=== PATIENT | female | born 1950 | race Caucasian/White ===

== ENCOUNTER → 2021-08-12 11:25 | Outpatient (BNVA) | payer MEDICARE, SELFPAY | PROVIDERS: PCP Pediatrics; Visit Provider Psychiatry & Neurology Neurology | DX: G20 Parkinson's disease (principal); Z79.899 Other long term (current) drug therapy | CPT/HCPCS: 99212 ==

== ENCOUNTER → 2021-11-24 09:55 | Outpatient (BNVA) | payer MEDICARE, SELFPAY | PROVIDERS: PCP Pediatrics; Visit Provider Psychiatry & Neurology Neurology | DX: G20 Parkinson's disease (principal); Z79.899 Other long term (current) drug therapy | CPT/HCPCS: 99212 ==

== ENCOUNTER → 2022-05-18 10:43 | Outpatient (BNVA) | payer MEDICARE, SELFPAY | PROVIDERS: PCP Pediatrics; Visit Provider Psychiatry & Neurology Neurology | DX: G20 Parkinson's disease (principal) | CPT/HCPCS: 99212 ==

== ENCOUNTER 2022-11-15 10:46 | Outpatient (AMB) | payer MEDICARE, SELFPAY ==
[2022-11-15 10:48] VITALS: BP 122/76; PULSE 77; O2SAT 97
--- NOTE | 2022-11-15 10:48 | A.OFFVIS_ITS ---
Intake Vital Signs 11/15/22 10:48 Height 5 ft 7 in BMI Reason not done Patient refused/unable BP 122/76 Blood Pressure Location Rt brachial Position Sitting Pulse 77 Pulse Source Pulse Oximeter Pulse Oximetry (%) 97 Oxygen Delivery Method Room Air Intake Visit Reasons: 6 m f/u-confirmed Intake Note: Pt presents as a 6 month f/u. Chief Service Observer Required: No Allergies tetracycline Allergy (Severe, Verified 11/15/22 10:51) Vomiting red (food color) Adverse Reaction (Severe, Verified 11/15/22 10:51) Swelling HPI HPI Comments History of Present Illness Details 72y/o female with parkinsonism, tardive dyskinesia, anxiety comes for follow up. she had afall few days ago when ehr walker caught in the door mat . she is doing Ok now. she is able to controle her anxiety better. she is exercising regularly.. she is on sinemet 25/100 1.5 tabs qid and feels she is stable she sees a psychiatrist and therapist , anxiety is better. she does yoga, deep breathing etc. Tremors are intermittent worse when anxious she is independent in most ADLs. No falls NO change on speech or swallowing she has home PT. she uses a walker Bowel movements are stable no hallucinations she tried austedo in past she could not tolerate cogentin PFSH Medical History Anxiety Arthritis Back pain Depression Hyperlipidemia Kidney disease Parkinsonism Thyroid disease Tremors of nervous system Family History Father Heart attack Mother Cancer COVID-19 Social History Alcohol intake: never Patient Tobacco Use Status: Never used Tobacco Use of substances other than those prescribed or required for medical reasons: No Physical Exam Vital Signs: Last Vital Signs Pulse 77 11/15/22 10:48 BP 122/76 11/15/22 10:48 Pulse Ox 97 11/15/22 10:48 Oxygen Delivery Method Room Air 11/15/22 10:48 Const General: cooperative, healthy appearing and comfortable Nutritional Appearance: overweight Neuro Other: Brad UE postural tremors- mild to moderate Good FFM Good foot taps, Mild decreased facial expression and blink Neck - stiffness and decreased range of motion Gait- can walk slowly without walker, better with walker, small steps Voice- dysprosody Assessment & Plan Assessment & Plan (1) Parkinsonism: Code(s): G20 - Parkinson's disease (2) Tremors of nervous system: Code(s): R25.1 - Tremor, unspecified Plan amantadine 100mg bid Continue sinemet 25/100 1.5tabs qid continue exercises Coding Level of Care Code Est Pt Level 4 (61147) Diagnoses Parkinsonism G20 Tremors of nervous system R25.1
== END 2022-11-15 11:03 | disposition home or self-care (01) ==
PROVIDERS: Visit Provider Psychiatry & Neurology Neurology
DX: G20 Parkinson's disease (principal)
CPT/HCPCS: 99214

== ENCOUNTER → 2022-11-15 10:46 | Outpatient (BNVA) | payer MEDICARE, SELFPAY | PROVIDERS: Visit Provider Psychiatry & Neurology Neurology | DX: G20 Parkinson's disease (principal) | CPT/HCPCS: 99212 ==

== ENCOUNTER 2023-05-18 10:40 | Outpatient (AMB) | payer MEDICARE, MEDICAID, SELFPAY ==
--- NOTE | 2023-05-18 11:02 | A.OFFVIS_ITS ---
Intake Vital Signs 05/18/23 11:03 Height 5 ft 7 in BP 130/88 Blood Pressure Location Lt brachial Position Sitting Respiration 17 Pulse 66 Pulse Source Pulse Oximeter Pulse Oximetry (%) 96 Oxygen Delivery Method Room Air Intake Visit Reasons: 6m follow up/ LVM Intake Note: Pt presents for 6 month follow up for Parkinsonism. Administrative Secretary Required: No Allergies tetracycline Allergy (Severe, Verified 05/18/23 11:03) Vomiting red (food color) Adverse Reaction (Severe, Verified 05/18/23 11:03) Swelling Medication List - Last Reconciled 05/18/23 by Lida Ayala MD amantadine HCl 100 mg PO BID 90 days carbidopa-levodopa 25-100 mg 1.5 tabs PO QID 90 days duloxetine (Cymbalta) 60 mg PO DAILY lamotrigine (Lamictal) 150 mg PO .qhs levothyroxine (Levoxyl) 50 mcg PO DAILY pravastatin 40 mg PO DAILY trazodone 100 mg PO BEDTIME PRN HPI HPI Comments History of Present Illness Details 73y/o female with parkinsonism, tardive dyskinesia, anxiety comes for follow up.Her anxiety is worse since she had an issue with a fellow tenant. she is seeing her therapist who is helping her. she had a fall in October 2022 she is doing Ok now. she is exercising regularly.. she is on sinemet 25/100 1.5 tabs qid and feels she is stable she sees a psychiatrist and therapist . she does yoga, deep breathing etc. Tremors are intermittent worse when anxious she is independent in most ADLs. No falls NO change on speech or swallowing she has home PT. she uses a walker Bowel movements are stable no hallucinations she tried austedo in past she could not tolerate cogentin PFSH Medical History Parkinsonism Tremors of nervous system Thyroid disease Kidney disease Hyperlipidemia Anxiety Depression Back pain Arthritis Family History Father Heart attack Mother Cancer COVID-19 Social History Alcohol intake: never Patient Tobacco Use Status: Never used Tobacco Physical Exam Vital Signs: Last Vital Signs Pulse 66 05/18/23 11:03 Resp 17 02/01/24 11:03 BP 130/88 05/18/23 11:03 Pulse Ox 96 05/18/23 11:03 Oxygen Delivery Method Room Air 05/18/23 11:03 Const General: cooperative, healthy appearing and comfortable Nutritional Appearance: overweight Neuro Other: Brad UE postural tremors- mild to moderate Good FFM Good foot taps, Mild decreased facial expression and blink Neck - stiffness and decreased range of motion Gait- can walk slowly without walker, better with walker, small steps Voice- dysprosody Assessment & Plan Assessment & Plan (1) Parkinsonism: Code(s): G20 - Parkinson's disease (2) Tremors of nervous system: Code(s): R25.1 - Tremor, unspecified Plan amantadine 100mg bid Continue sinemet 25/100 1.5tabs qid continue exercises F/u with psychiatry and therapy Medications: Changed From amantadine HCl 100 mg PO BID 60 caps 6RF To amantadine HCl 100 mg PO BID 90 days 180 caps 6RF From carbidopa-levodopa 25-100 mg 1.5 tabs PO QID 180 tabs 6RF To carbidopa-levodopa 25-100 mg 1.5 tabs PO QID 90 days 540 tabs 6RF Coding Level of Care Code Est Pt Level 4 (58920) Diagnoses Parkinsonism G20 Tremors of nervous system R25.1
[2023-05-18 11:03] VITALS: BP 130/88; PULSE 66; RESP 17; O2SAT 96
== END 2023-05-18 11:39 | disposition home or self-care (01) ==
PROVIDERS: PCP Pediatrics; Visit Provider Psychiatry & Neurology Neurology
DX: G20.C Parkinsonism, unspecified (principal)
CPT/HCPCS: 99214

== ENCOUNTER → 2023-05-18 10:40 | Outpatient (BNVA) | payer MEDICARE, MEDICAID, SELFPAY | PROVIDERS: PCP Pediatrics; Visit Provider Psychiatry & Neurology Neurology | DX: G20.C Parkinsonism, unspecified (principal); Z79.899 Other long term (current) drug therapy | CPT/HCPCS: 99212 ==

== ENCOUNTER 2024-06-11 10:20 | Outpatient (AMB) | payer MEDICARE, MEDICAID, SELFPAY ==
--- NOTE | 2024-06-11 10:24 | MHC.OFFVIS ---
Vital Signs 06/11/24 10:26 Height 5 ft 7 in Weight 234 lb BMI 36.6 BP 140/84 H Blood Pressure Location Rt brachial Position Sitting Pulse 77 Pulse Source Pulse Oximeter Pulse Oximetry (%) 98 Oxygen Delivery Method Room Air Intake Visit Reasons: 6 mnts Intake Note: patient following up for parkinson's Allergies Sulfa (Sulfonamide Antibiotics) Allergy (Severe, Verified 06/11/24 10:28) irritation tetracycline Allergy (Severe, Verified 06/11/24 10:27) Vomiting red (food color) Adverse Reaction (Severe, Verified 06/11/24 10:27) Swelling Medication List - Last Reconciled 06/11/24 by Lida Ayala MD amantadine HCl 100 mg PO BID 90 days carbidopa-levodopa 25-100 mg 1.5 tabs PO QID 90 days duloxetine (Cymbalta) 60 mg PO DAILY lamotrigine (Lamictal) 150 mg PO .qhs levothyroxine (Levoxyl) 50 mcg PO DAILY pravastatin 40 mg PO DAILY trazodone 100 mg PO BEDTIME PRN HPI Comments Details: 74y/o female with parkinsonism, tardive dyskinesia, anxiety comes for follow up after 1 year. she is doing well. Her anxiety fluctuates and she is seeing her therapist who is helping her. she is exercising regularly - does chair yoga.she uses a walker- independent in most ADLs. she has an aide to help with cleaning.No falls History from last visit-she had a fall in October 2022 she is doing Ok now. she is exercising regularly.. she is on sinemet 25/100 1.5 tabs qid and feels she is stable she sees a psychiatrist and therapist . she does yoga, deep breathing etc. Tremors are intermittent worse when anxious she is independent in most ADLs. No falls NO change on speech or swallowing she has home PT. she uses a walker Bowel movements are stable no hallucinations she tried austedo in past she could not tolerate cogentin [facility] Medical History Parkinsonism Tremors of nervous system Thyroid disease Kidney disease Hyperlipidemia Anxiety Depression Back pain Arthritis Family History Father Heart attack Mother Cancer COVID-19 Social History Alcohol intake: never Patient Tobacco Use Status: Never used Tobacco Physical Exam Vital Signs: Last Vital Signs Pulse 77 06/11/24 10:26 BP 140/84 H 06/11/24 10:26 Pulse Ox 98 06/11/24 10:26 Oxygen Delivery Method Room Air 06/11/24 10:26 BMI result Body Mass Index 36.6 Const General: cooperative, healthy appearing and comfortable Nutritional Appearance: obese Orientation/consciousness: No patient oriented x3 Neuro Other: Brad UE postural tremors- mild to moderate Good FFM Good foot taps, Mild decreased facial expression and blink Neck - stiffness and decreased range of motion Gait- can walk slowly without walker, better with walker, small steps Voice- dysprosody General: No patient oriented x3 Assessment & Plan Assessment & Plan (1) Parkinsonism: Code(s): G20 - Parkinson's disease Category: Medical Qualifiers: Parkinsonism type: secondary Parkinsonism Secondary Parkinsonism type: neuroleptic-induced Qualified Code(s): G21.11 - Neuroleptic induced parkinsonism; T43.505A - Adverse effect of unspecified antipsychotics and neuroleptics, initial encounter (2) Tremors of nervous system: Code(s): R25.1 - Tremor, unspecified Category: Medical Plan amantadine 100mg bid Continue sinemet 25/100 1.5tabs qid continue exercises continue therapy Medications: Refilled carbidopa-levodopa 25-100 mg 1.5 tabs PO QID 90 days 540 tabs 3RF amantadine HCl 100 mg PO BID 90 days 180 caps 6RF Coding Level of Care Code Est Pt Level 4 (12509) Complex EM visit Add On G2211 Diagnoses Neuroleptic-induced parkinsonism G21.11; 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
[2024-06-11 10:26] VITALS: BP 140/84; PULSE 77; O2SAT 98; BMI 36.6
--- OUTSIDE RECORDS SUMMARY | 2024-06-11 12:09 | XMS_ITS | Continuity of Care Document ---
Author Organization [facility] Address [address] [address] Phone Care Team Providers Care Health And Safety Consultant Name Role Phone Nader Tony DO Unavailable Unavailable Advance Directives Directive Yes / No Effective Date File Name No Information Encounters Encounter Description Practice Location Reason(s) For Visit Diagnoses Date Provider [facility], [address] [place] [address], [id number], [place] tel:[phone] [address] [place] [address] No Information [address] Chavo Doe. [address] [place] [address], [id number], [place]. tel:[phone] Family History Family Member Type Diagnosis Age At Onset No Information Payers Payer name Insurance type Covered green party ID Authoriza tion(s) No Information Social History Type Description Quantity Date Captured Comments Sex Female Smoking Status No Information Chief Complaint And Reason For Visit No Information History Of Present Illness Encounter Date Complaint History Of Prese nt Illness No Information Instructions Date Instruction Additional Infor mation No Information Assessments Type Assessment Date No Information
--- OUTSIDE RECORDS SUMMARY | 2024-06-11 12:09 | XMS_ITS | Encounter Summary ---
Author Organization [facility] Address [address] [facility] [address] [place] [address] Phone Care Team Providers Care Rock Mason Apprentice Name Role Phone Brandon Al MD Primary Care Provider + Encounter Details Date Type Department Care Team (Late Contact Info) Description 05/15/2024 Orders Only [facility] [address] [facility] [address] [place] [address] Tu Villagomez MD [address] [address] Chronic kidney disease, not otherwise specified Social History Tobacco Use Types Packs/Day Years Used Date Smoking Tobacco: Never Smokeless Tobacco: Never Alcohol Use Standard Drinks/Week Comments No 0 (1 standard drink = 0.6 oz pur e alcohol) Comments Unknown Sex and Gender Information Value Date Recorded Sex Assigned at Not on file Legal Sex Female 4:42 PM EST Gender Identity Not on file Sexual Orientation Not on file documented as of this encounter Plan of Treatment Upcoming Encounters Date Type Department Care Team (Late st Contact Info) Description 05/12/2025 1:00 PM EST Office Visit [facility] [address] [address] Tu Villagomez MD [address] [address] documented as of this encounter Visit Diagnoses Diagnosis Chronic kidney disease, not otherwise specified documented in this encounter Care Teams Rock Mason Apprentice Relationship Specialty Start Date End Date Brandon Al MD [address] [place] [address] PCP - General 04/27/20 documented as of this encounter
--- OUTSIDE RECORDS SUMMARY | 2024-06-11 12:09 | XMS_ITS | Clinical Summary ---
Author Organization [facility]. Address [address] [address] Phone Care Team Providers Care Optical Laboratory Manager Name Role Phone Brandon Al MD Primary Care Provider + Allergies Active Allergy Reactions Criticality Noted Date Comments Red Dye #40 (Allura Red) 05/15/2023 Tetracycline 05/15/2023 Tetracyclines & Related Other (see comments) Medications acetaminophen (TYLENOL) 325 MG tablet Take 2 tablets by mouth every 4 (four) hours Active aspirin (ST TAYE) 81 MG EC tablet Take 1 tablet by mouth 1 (one) time each day Active carbidopa-levod opa (Sinemet) 25-100 MG per tablet Take 1 tablet by mouth 4 times a day Active levothyroxine (SYNTHROID, LEVOTHROID) 50 MCG tablet Take 1 tablet by mouth 1 (one) time each day Active LORazepam (Ativan) 0.5 MG tablet Take 1 tablet by mouth Active polyethylene glycol (MiraLax) 17 GM/SCOOP powder Acti ve pravastatin (PRAVACHOL) 40 MG tablet Take 1 tablet by mouth 1 (one) time each day Active QUEtiapine (SEROquel) 25 MG tablet Take 1 tablet by mouth 3 (three) times a day Active senna (SENOKOT) 8.6 MG tablet Take 1 tablet by mouth 1 (one) time each day Active VITAMIN D PO Take by mouth Act sami Vitamin D, Cholecalciferol , 25 MCG (1000 UT) tablet Take by mouth 1 (one) time each day Active VITAMIN E PO Take by mouth Act sami traZODone (DESYREL) 100 MG tablet Take 100 mg by mouth at night if needed Active lamoTRIgine (LaMICtal) 150 MG tablet Take 150 mg by mouth 1 (one) time each day in the evening 3 Active DULoxetine (CYMBALTA) [address] capsule TAKE 1 CAPSULE (60 MG) BY MOUTH DAILY AFTER BREAKFAST 3 Active busPIRone (BUSPAR) 5 MG tablet Take 5 mg by mouth 2 Active amantadine (SYMMETREL) 100 MG capsule Take 100 mg by mouth 2 Active Active Problems Problem Noted Date Diagnosed Date Obese class I 05/15/2023 Urinary incontinence 05/15/2023 Secondary hyperparathyroidism 10/05/2020 Chronic kidney disease stage 3 10/02/2020 Hyperlipidemia 10/02/2020 Hypothyroidism 10/02/2020 Encounters Date Type Department Care Team Description 05/15/2024 Orders Only [facility] [address] [facility] [address] [place] [address] Tu Villagomez MD Chronic kidney disease, not otherwise specified 05/13/2024 1:00 PM EST Office Visit [facility] [place] [id number] [facility] [address] [place] [address] Tu Villagomez MD Chronic kidney disease, not otherwise specified (Primary Dx); Long-term current use of lithium 04/11/2024 Orders Only [facility] [place] [id number] [address] Tu Villagomez MD from Last 3 Months Family History Medical History Relation Comments Heart disease Father Hypertension Father Hypertension Mother Relation Status Comments Father Mother Alive Social History Tobacco Use Types Packs/Day Years Used Date Smoking Tobacco: Never Smokeless Tobacco: Never Tobacco Cessation:Counseling Given: No Alcohol Use Standard Drinks/Week Comments No 0 (1 standard drink = 0.6 oz pur e alcohol) Comments Unknown Sex and Gender Information Value Date Recorded Sex Assigned at Not on file Legal Sex Female 4:42 PM EST Gender Identity Not on file Sexual Orientation Not on file Last Filed Vital Signs Vital Sign Reading Time Taken Comments Blood Pressure 120/62 05/13/2024 12:58 PM EST Pulse 53 05/13/2024 12:58 PM EST Temperature - - Respiratory Rate - - Oxygen Saturation 98% 05/15/2023 2:33 PM EST Inhaled Oxygen Concentration - - Weight 105 kg (232 lb) 05/13/2024 12:58 PM EST Height 170.2 cm (5' 7 ) 10/05/2020 1:04 PM EDT Body Mass Index 36.34 10/05/2020 1:04 PM EDT Plan of Treatment Upcoming Encounters Date Type Department Care Team (Late st Contact Info) Description 05/12/2025 1:00 PM EST Office Visit [facility] [address] [address] Tu Villagomez MD [address] [facility] [address] [place] [address] Health Maintenance Due Date Last Done Comments Hepatitis B Vaccine (1 of 3 - Risk 3-dose series) 2008 Influenza Vaccine (#1) 2023 0, 03/21/2017, 04/29/2016, Additional history exists Pneumococcal Vaccine: 65+ Years Completed 7, 10/10/2013 Procedures Procedure Name Priority Date/Time Associated Diagnosis Comments PTH, INTACT Routine 04/11/2024 11:32 AM EST VITAMIN D 25 HYDROXY Routine 04/11/2024 11:32 AM EST URINE ALBUMIN / CREATININE RATIO Routine 04/11/2024 11:32 AM EST HEPATIC FUNCTION PANEL Routine 04/11/2024 11:32 AM EST from Last 3 Months Results * Urine Albumin / Creatinine Ratio (04/11/2024 11:32 AM EST) Creatinine, Ur 38.1 Not Estab. mg/dL [facility] Urine Microalbumin <3.0 Not Estab. ug/mL [facility] Microalbumin/Crea tinine Ratio <8 0 - 29 mg/g creat [facility] Comment: ? Normal: ?0 - ??29 ? Moderately increased: 30 - 300 ? Severely increased: ? >300 04/11/2024 11:3 2 AM EST 04/11/2024 Tu Villagomez MD LAB URINE ORDERABLES Final Resul t Performing Organization Address [facility] de Phone Number [employer] [address] [place] [address] * (ABNORMAL) Vitamin D 25 Hydroxy (04/11/2024 11:32 AM EST) Vitamin D, 25-OH, Total 29.2(L) 30.0 - 100.0 ng/mL [facility] [place] Comment: Vitamin D deficiency has been defined by the [place] of Medicine and an Endocrine Society practice guideline as a level of serum 25-OH vitamin D less than 20 ng/mL (1,2). The Endocrine Society went on to further define vitamin D insufficiency as a level between 21 and 29 ng/mL (2). 1. IOM ([place] of [employer]). 2010. Dietary reference ?? intakes for calcium and D. [place]: The ?? National Academies Press. 2. Sebastián MF, Karthik NC, Clifford LOPEZ, et al. ?? Evaluation, treatment, and prevention of vitamin D ?? deficiency: an Endocrine Society clinical practice ?? guideline. JCEM. 2011 Oct; 96(7):1911-30. 04/11/2024 11:3 2 AM EST 04/11/2024 Tu Villagomez MD LAB BLOOD ORDERABLES Final Resul t Performing Organization Address [facility] Co de Phone Number [employer] [facility] [address] [place] [address] * PTH, Intact (04/11/2024 11:32 AM EST) PTH 45 15 - 65 pg/mL [facility] 04/11/2024 11:3 2 AM EST 04/11/2024 us Tu Villagomez MD LAB BLOOD ORDERABLES Final Resul t Performing Organization Address City/[facility]/ZIP Co de Phone Number [facility] [address] [place] [address] * Hepatic Function Panel (04/11/2024 11:32 AM EST) Total Protein 7.0 6.0 - 8.5 g/dL [facility] Albumin 3.9 3.8 - 4.8 g/dL [facility] Total Bilirubin 0.5 0.0 - 1.2 mg/dL [facility] Bilirubin, Direct 0.17 0.00 - 0.40 mg/dL [facility] Alkaline Phosphatase 112 44 - 121 IU/L [facility] AST (SGOT) 14 0 - 40 IU/L [facility] ALT (SGPT) 5 0 - 32 IU/L [facility] 04/11/2024 11:3 2 AM EST 04/11/2024 us Tu Villagomez MD LAB BLOOD ORDERABLES Final Resul t Performing Organization Address City/[facility]/ZIP Co de Phone Number [facility] [address] [place] [address] from Last 3 Months Insurance MEDICAID [place] [facility] MEDICAID [place] [facility] Care Teams Optical Laboratory Manager Relationship Specialty Start Date End Date Brandon Al MD [address] [place] [id number] PCP - General 04/27/20
--- OUTSIDE RECORDS SUMMARY | 2024-06-11 12:09 | XMS_ITS | Clinical Summary ---
Author Organization Patient Business Ser [facility] [place] Address [address] [place] [address] Care Team Providers Care Coat Feller Name Role Phone Kathy Al MD Primary Care Provider [phone] Allergies Active Allergy Reactions Criticality Noted Date Comments Amaranth Numbness Medium 09/08/2005 Fd And C Red No.40 05/15/2023 Red Dye Other 05/22/2024 Sulfa (Sulfonamide Antibiotics) Photosensitivity 05/22/2024 Tetracycline Nausea And Vomiting High 09/08/2005 Tetracyclines Other 10/02/2020 Medications pravastatin (PRAVACHOL) 40 mg tablet Take 1 tablet (40 mg total) by mouth 1 (one) time each day. Active CHOLECALCIFERO L, VITAMIN D3, ORAL Take 10,000 Units Each M illion Units by mouth daily. Active coenzyme Q-10 100 mg capsule Take 1 Capsule by mouth daily. At bedtime Active DULoxetine (CYMBALTA) [address] capsule Take 3 capsules (60 mg total) by mouth 1 (one) time each day. Active lamoTRIgine (LaMICtal) 150 mg tablet Take 50 mg by mouth at bedtime. Active traZODone (DESYREL) 50 mg tablet Take 2 tablets (100 mg total) by mouth 1 (one) time each day. Active carbidopa-levo dopa (SINEMET) 25-100 mg per tablet Take 1 tablet by mouth 3 (three) times a day. Active levothyroxine (SYNTHROID, LEVOTHROID) 50 mcg tablet TAKE 1 TABLET BY MOUTH EVERY DAY 90 tablet 1 5 Active amantadine (SYMMETREL) 100 mg capsule Take 1 capsule (100 mg total) by mouth 2 (two) times a day. 5 Active levothyroxine (SYNTHROID, LEVOTHROID) 50 mcg tablet Take 1 tablet (50 mcg total) by mouth 1 (one) time each day. 4 025 Discontinued amantadine (SYMMETREL) 100 mg capsule Take 1 capsule (100 mg total) by mouth 2 (two) times a day. 4 025 Discontinued Active Problems Problem Noted Date Diagnosed Date Colon cancer screening 03/12/2024 Overview (03/12/2024): Refused 2004, 2005, 2008, 03/10 Morbid obesity 01/30/2024 Impaired glucose tolerance 01/04/2022 Anxiety 11/08/2019 Drug-induced dyskinesia 11/08/2019 CKD (chronic kidney disease) stage 3, GFR 30-59 ml/min 04/29/2016 Overview (01/30/2024): Dr. Villagomez Pure hypercholesterolemia 06/29/2006 Overview (01/30/2024): 06/21--LDL and Trig Intol simvastatin, pravastatin Psoriasis 03/07/2006 Overview (01/30/2024): scalp Bipolar I disorder 03/07/2006 Overview (01/30/2024): Dr. Veronica at [facility] Cholelithiasis 03/07/2006 Overview (01/30/2024): By u/s 02/20--asymptomatic Chronic liver disease 03/07/2006 Overview (01/30/2024): by u/s 02/20--LFT normal IMO update Headache 03/07/2006 Overview (01/30/2024): Migraines in past, neg since 1994 Hypothyroidism 03/07/2006 Tremor 03/07/2006 Overview (01/30/2024): due to [place]--takes inderal Neurology. ?parkinsons Undiagnosed cardiac murmurs 03/07/2006 Overview (01/30/2024): 02/20--c/w MR Encounters Date Type Department Care Team Description 05/22/2024 9:00 AM EST Consult Adult Medicine [address] [phone] Joseph Anderson PA Cataract of both eyes, unspecified cataract type (Primary Dx); Bipolar I disorder ([facility]); Drug-induced dyskinesia; Pure hypercholesterolemia; Hypothyroidism, unspecified type; Stage 3 chronic kidney disease, unspecified whether stage 3a or 3b CKD ([facility]/HCC) 05/03/2024 Telephone Adult Medicine - [place] [address] [place] [phone] Kathy Al MD Pre-op Visit ([facility]) 03/12/2024 10:45 AM EST Office Visit Adult Medicine [facility] [address] [place] [address] Kathy Al MD Pure hypercholesterolemia (Primary Dx); Hypothyroidism, unspecified type; Undiagnosed cardiac murmurs; Colon cancer screening; Impaired glucose tolerance from Last 3 Months Immunizations Name Administration Dates Next Due H1N1 Inj Preservative Free 05/05/2009 Influenza Quadravalent, MDCK , 0.5ml, with preservative (Flucelvax) 6mo and older 03/21/2017 Influenza trivalent, 0.5mL ( Fluad) 65yo and older 05/22/2024,04/16/2020 Influenza trivalent, 0.5mL ( Fluzone High-dose) 65yo and older 04/16/2020 Influenza trivalent, 0.5mL, preservative free (Fluarix; FluLaval; Fluzone) ages 6mo and older (Afluria) 3 years and older 04/29/2016,05/28/2014,02/28/2013,01/23,01/17/2011,01/04/2010,05/05/2009 ,02/14/2008,03/22/2007,03/30/2006 Influenza trivalent, with pr eservative (Fluzone; Afluria) 6mo and older 04/29/2016,05/28/2014,01/15/2014,02/28,01/24/2012,02/15/2011,01/17/2011 ,01/04/2010,05/05/2009,02/14/2008,12/09/2006,03/30/2006 [employer] SARS-CoV-2 COVID -19, vector-nr, rS-Ad26, preservative free 07/08/2020 PPD Test 10/14/2013 Pneumococcal Conjugate 01/15/2014 Pneumococcal conjugate 13 va lent (Prevnar 13, PCV13) 2mo and older 08/26/2016 Pneumococcal polysaccharide 23 valent (Pneumovax 23) 2yo and older 10/10/2013 Td Tetanus diptheria (Tdvax) 7yo and older 11/03/2020,04/17/1998 Tdap Tetanus diptheria acell ular pertussis (Boostrix; Adacel) 7yo and older 01/04/2010 Tetanus Toxoid, Unspecified 02/15/2011 Medical History Medical History Date Comments Unspecified hypothyroidism DX:Un specified hypothyroidism Anxiety state, unspecified DX:An xiety state, unspecified; COMMENT: bipolar CKD (chronic kidney disease) stage 3, GFR 30-59 ml/min ([facility]/HCC) 04/29/2016 DX:CKD (chronic kidney dise ase) stage 3, GFR 30-59 ml/min ([facility]) Family History Medical History Relation Name Comments No Known Problems Brother twin Coronary artery disease Father 80's Other: covid Mother Thyroid disease Mother Thyroid disease Other 1 Brother Grav es, Mother hypothyroid Other: Basal cell Ca Other 2 No Known Problems Sister Breast cancer Neg Hx Relation Name Status Comments Brother twin Alive Father Mother Other 1 Other 2 Sister Alive Social History Tobacco Use Types Packs/Day Years Used Date Smoking Tobacco: Never Smokeless Tobacco: Never Tobacco Cessation:Counseling Given: Not Answered Alcohol Use Standard Drinks/Week Comments No 0 (1 standard drink = 0.6 oz pur e alcohol) Comments No Sex and Gender Information Value Date Recorded Sex Assigned at Not on file Legal Sex Female 1:01 PM EST Gender Identity Not on file Sexual Orientation Not on file Obstetrics History Last Filed Vital Signs Vital Sign Reading Time Taken Comments Blood Pressure 140/74 05/22/2024 9:15 AM EST Pulse 68 05/22/2024 8:47 AM EST Temperature 35.9 ??C (96.7 ??F) 05/22/2024 8:47 AM ES T Respiratory Rate - - Oxygen Saturation - - Inhaled Oxygen Concentration - - Weight 105 kg (232 lb) 05/22/2024 8:47 AM EST Height 170.2 cm (5' 7 ) 05/22/2024 8:47 AM EST Body Mass Index 36.34 05/22/2024 8:47 AM EST Plan of Treatment Upcoming Encounters Date Type Department Care Team (Late st Contact Info) Description 09/12/2024 10:30 AM EDT Office Visit Adult Medicine - [place] [address] [place] [phone] Kathy Al MD [address] [place] [address] Health Maintenance Due Date Last Done Comments Zoster Vaccines (1 of 2) 1998 Depression Screening 05/12/2020 Falls Risk Assessment 05/12/2020 Medicare Annual Wellness Visit 05/12/2020 Social Influencers of Health Screening 05/12/2020 COVID-19 Vaccine (2 - Makenzie risk series) 08/05/2020 07/08/2020 RSV Immunization Patients 60+ Years Old (1 - 1-dose 75+ series) 2023 Osteoporosis Screening (Bone Density Screening) 03/11/2025 11/24/2020 Postponed from 11/24/2022 (Patient Refused) Cholesterol Screening (Lipid Panel) 03/12/2029 03/12/2024, 07/06/2023 DTaP,Tdap,and Td Vaccines (4 - Td or Tdap) 11/03/2030 11/03/2020, 01/04/2010, 04/17/1998 Hepatitis C Screening Completed 05/28/2014 Pneumococcal Vaccine: 50+ Years Completed 08/26/2016, 10/10/2013 Breast Cancer Screening Discontinued 03/30/2023, 10/20 Influenza Vaccine Completed 05/22/2024, , 04/16/2020, Additional history exists HIB Vaccines Aged Out No longer eligi ble based on patient's age to complete this topic HPV Vaccines Aged Out No longer eligi ble based on patient's age to complete this topic Hepatitis A Vaccines Aged Out No long er eligible based on patient's age to complete this topic Hepatitis B Vaccines Aged Out No long er eligible based on patient's age to complete this topic IPV Vaccines Aged Out No longer eligi ble based on patient's age to complete this topic MMR Vaccines Aged Out No longer eligi ble based on patient's age to complete this topic Meningococcal ACWY Vaccine Aged Out N o longer eligible based on patient's age to complete this topic Meningococcal B Vacine Aged Out No lo nger eligible based on patient's age to complete this topic RSV Immunization Patients Under 20 months Aged Out No longer eligible based on patient's age to complete this topic Varicella Vaccines Aged Out No longer eligible based on patient's age to complete this topic Procedures Procedure Name Priority Date/Time Associated Diagnosis Comments CBC WITH AUTO DIFFERENTIAL Routine 03/12/2024 11:19 AM EST Undiagnosed cardiac murmurs THYROID STIMULATING HORMONE WITH REFLEX TO FREE T4 AND FREE T3 Routine 03/12/2024 11:19 AM EST Hypothyroidism, unspecified type LIPID PANEL WITH REFLEX TO DIRECT LDL Routine 03/12/2024 11:19 AM EST Pure hypercholesterolemia COMPREHENSIVE METABOLIC PANEL Routine 03/12/2024 11:19 AM EST Pure hypercholesterolemia CBC AND DIFFERENTIAL Routine 03/12/2024 11:19 AM EST Undiagnosed cardiac murmurs SCREENING MAMMOGRAPHY BI 2-VIEW BREAST INC CAD Routine 03/30/2023 11:27 AM EST Encounter for other screening for malignant neoplasm of breast DXA BONE DENSITY STUDY 1+ SITS AXIAL SKEL Routine 11/24/2020 11:04 AM EDT Encounter for screening for osteoporosis HM HEPATITIS C SCREENING Routine 05/28/2014 from Last 3 Months or Most Recently Relevant to Health Maintenance Results * Thyroid stimulating hormone with reflex to free t4 and free t3 (03/12/2024 11:19 AM EST) Pathologist [facility] TSH 3.75 0.40 - 4.00 mcIU/mL LAB CHEMISTRY METHOD 03/12/2024 1:03 PM [facility] Blood Venous blood specimen / Unknown Venipuncture / Unknown 03/12/2024 11:19 AM EST 03/12/2024 11:19 AM EST [facility] [place] LAB BLOOD ORDERABLES Final Res ult [facility] [address] [place] [address], [place] [phone] * (ABNORMAL) Lipid panel with reflex to direct LDL (03/12/2024 11:19 AM EST) Pathologist [facility] Cholesterol 225(H) 0 - 200 mg/dL LAB CHEMISTRY METHOD 03/12/2024 12:59 PM [facility] Triglycerides 205(H) 0 - 150 mg/dL LAB CHEMISTRY METHOD 03/12/2024 12:59 PM [facility] HDL 68 >=40 mg/dL LAB CHEMISTRY METHOD 03/12/2024 12:59 PM [facility] LDL Calculated 116(H) 0 - 100 mg/dL LAB CHEMISTRY METHOD 03/12/2024 12:59 PM [facility] VLDL Cholesterol Kyler 41 mg/dL LAB CHEMISTRY METHOD 03/12/2024 12:59 PM [facility] Non HDL Chol. (LDL+VLDL) 157(H) <145 mg/dL LAB CHEMISTRY METHOD 03/12/2024 12:59 PM [facility] Chol/HDL Ratio 3.3 0.0 - 4.4 LAB CHEMISTRY METHOD 03/12/2024 12:59 PM [facility] Blood Venous blood specimen / Unknown Venipuncture / Unknown 03/12/2024 11:19 AM EST 03/12/2024 11:19 AM EST [facility] [place] Al MD LAB BLOOD ORDERABLES Final Res ult [facility] [address] [place] [address], * (ABNORMAL) CBC auto differential (03/12/2024 11:19 AM EST) WBC 7.3 4.8 - 10.8 K/mcL LAB HEMETOLOGY METHOD 03/12/2024 12:12 PM [facility] RBC 4.30 3.80 - 4.80 M/mcL LAB HEMETOLOGY METHOD 03/12/2024 12:12 PM [facility] Hemoglobin 12.9 11.5 - 16.0 g/dL LAB HEMETOLOGY METHOD 03/12/2024 12:12 PM [facility] Hematocrit 40.8 35.0 - 47.0 % LAB HEMETOLOGY METHOD 03/12/2024 12:12 PM [facility] MCV 94.7 79.0 - 98.0 FL LAB HEMETOLOGY METHOD 03/12/2024 12:12 PM [facility] MCH 29.9 27.0 - 32.0 pcg LAB HEMETOLOGY METHOD 03/12/2024 12:12 PM [facility] MCHC 31.6(L) 32.0 - 37.0 g/dL LAB HEMETOLOGY METHOD 03/12/2024 12:12 PM [facility] RDW 13.3 11.0 - 15.0 % LAB HEMETOLOGY METHOD 03/12/2024 12:12 PM [facility] Platelets 251 130 - 400 K/mcL LAB HEMETOLOGY METHOD 03/12/2024 12:12 PM [facility] MPV 9.4 7.0 - 11.0 FL LAB HEMETOLOGY METHOD 03/12/2024 12:12 PM [facility] NRBC 0.0 <1.0 % LAB HEMETOLOGY METHOD 03/12/2024 12:12 PM [facility] NRBC Absolute 0.00 <0.10 K/mcL LAB HEMETOLOGY METHOD 03/12/2024 12:12 PM [facility] Neutrophils Relative 62.3 % LAB HEMETOLOGY METHOD 03/12/2024 12:12 PM [facility] Lymphocytes Relative 25.0 % LAB HEMETOLOGY METHOD 03/12/2024 12:12 PM [facility] Monocytes Relative 10.2 % LAB HEMETOLOGY METHOD 03/12/2024 12:12 PM [facility] Eosinophils Relative 1.4 % LAB HEMETOLOGY METHOD 03/12/2024 12:12 PM [facility] Basophils Relative 0.7 % LAB HEMETOLOGY METHOD 03/12/2024 12:12 PM [facility] Immature Granulocytes Relative 0.4 % LAB HEMETOLOGY METHOD 03/12/2024 12:12 PM [facility] Neutrophils Absolute 4.53 1.50 - 7.00 K/mcL LAB HEMETOLOGY METHOD 03/12/2024 12:12 PM [facility] Lymphocytes Absolute 1.82 1.00 - 5.00 K/mcL LAB HEMETOLOGY METHOD 03/12/2024 12:12 PM [facility] Monocytes Absolute 0.74 0.20 - 1.00 K/mcL LAB HEMETOLOGY METHOD 03/12/2024 12:12 PM [facility] Eosinophils Absolute 0.10 0.00 - 0.50 K/mcL LAB HEMETOLOGY METHOD 03/12/2024 12:12 PM EST [facility] Basophils Absolute 0.05 0.00 - 0.20 K/mcL LAB HEMETOLOGY METHOD 03/12/2024 12:12 PM [facility] Immature Granulocytes Absolute 0.03 0.00 - 0.03 K/mcL LAB HEMETOLOGY METHOD 03/12/2024 12:12 PM [facility] Blood Venous blood specimen / Unknown Venipuncture / Unknown 03/12/2024 11:19 AM EST 03/12/2024 11:19 AM EST [facility] LAB BLOOD ORDERABLES Final Res ult [facility] [address] [place] [address], [place] [phone] * (ABNORMAL) Comprehensive metabolic panel (03/12/2024 11:19 AM EST) Sodium 142 133 - 145 mmol/L LAB CHEMISTRY METHOD 03/12/2024 12:59 PM [facility] Potassium 4.1 3.5 - 5.5 mmol/L LAB CHEMISTRY METHOD 03/12/2024 12:59 PM [facility] Chloride 110 96 - 110 mmol/L LAB CHEMISTRY METHOD 03/12/2024 12:59 PM [facility] CO2 27 21 - 32 mmol/L LAB CHEMISTRY METHOD 03/12/2024 12:59 PM [facility] Anion Gap 5 3 - 11 LAB CHEMISTRY METHOD 03/12/2024 12:59 PM [facility] Glucose 81 70 - 100 mg/dL LAB CHEMISTRY METHOD 03/12/2024 12:59 PM [facility] BUN 18 5 - 25 mg/dL LAB CHEMISTRY METHOD 03/12/2024 12:59 PM [facility] Creatinine 1.29(H) 0.50 - 1.10 mg/dL LAB CHEMISTRY METHOD 03/12/2024 12:59 PM [facility] eGFR 43(L) >=60 mL/min/1. 73m2 LAB CHEMISTRY METHOD 03/12/2024 12:59 PM [facility] Comment:Calculation based on the??Chronic Kidney Disease Epidemiology Collaboration (CKD-EPI) equation refit??without adjustment for race. BUN/Creatinine Ratio 14.0 LAB CHEMISTRY METHOD 03/12/2024 12:59 PM [facility] Calcium 9.1 8.5 - 10.5 mg/dL LAB CHEMISTRY METHOD 03/12/2024 12:59 PM [facility] AST (SGOT) 12 10 - 42 unit/L LAB CHEMISTRY METHOD 03/12/2024 12:59 PM [facility] ALT (SGPT) 16 10 - 60 unit/L LAB CHEMISTRY METHOD 03/12/2024 12:59 PM [facility] Alkaline Phosphatase 106 42 - 121 unit/L LAB CHEMISTRY METHOD 03/12/2024 12:59 PM [facility] Total Protein 7.1 6.0 - 8.0 g/dL LAB CHEMISTRY METHOD 03/12/2024 12:59 PM [facility] Albumin 3.6 3.2 - 5.0 g/dL LAB CHEMISTRY METHOD 03/12/2024 12:59 PM [facility] Total Bilirubin 0.5 0.0 - 1.4 mg/dL LAB CHEMISTRY METHOD 03/12/2024 12:59 PM [facility] Blood Venous blood specimen / Unknown Venipuncture / Unknown 03/12/2024 11:19 AM EST 03/12/2024 11:19 AM EST us C Jason Al MD LAB BLOOD ORDERABLES Final Res ult [facility] [address] [place] [address], * SCREENING MAMMOGRAPHY BI 2-VIEW BREAST INC CAD (03/30/2023 11:27 AM EST) Anatomical Region Laterality Modality Radiographic Darby ging 10/20/2020 11:0 5 AM EDT Narrative 03/30/2023 1:06 PM EST This is a summary report. The complete report is available in the patient's medical record. If you cannot access the medical record, please contact the sending organization for a detailed fax or copy. Full field digital screening tomosynthesis mammography, reviewed with CAD and compared to previous. The breast tissue is heterogeneously dense, limiting sensitivity. No suspicious mass, architectural distortion or suspicious calcifications are identified. IMPRESSION: : Dense breast tissue, limiting the sensitivity of mammography. No mammographic evidence of malignancy. BIRADS 1-Negative; N. 5 year breast cancer risk assessment 1.8 % Lifetime breast cancer risk assessment 4.1 % Breast cancer risk category Low (<15%) Procedure Note Lisandro Echeverria MD - 05/22/2023 This is a summary report. The complete report is available in thepatient's medical record. If you cannot access the medical record, pleasecontact the sending organization for a detailed fax or copy. Full field digital screening tomosynthesis mammography, reviewed with CADand compared to previous. The breast tissue is heterogeneously dense,limiting sensitivity. No suspicious mass, architectural distortion orsuspicious calcifications are identified. IMPRESSION: : Dense breast tissue, limiting the sensitivity of mammography. Nomammographic evidence of malignancy. BIRADS 1-Negative; N. 5 year breast cancer risk assessment 1.8 % Lifetime breast cancer risk assessment 4.1 % Breast cancer risk category Low (<15%) C Jason Al MD IMG XR PROCEDURES Final Result * DXA BONE DENSITY STUDY 1+ SITS AXIAL SKEL (11/24/2020 11:04 AM EDT) Anatomical Region Laterality Modality Bone Densitometr y 04/16/2020 11:3 9 AM EST Narrative 11/24/2020 4:27 PM EDT Clinical history: menopausal/postmenopausal disorder Scans of the lumbar spine and hips were performed on a [employer] fan beam bone densitometer. ? Bone mineral density measurements and associated T and Z scores respectively are as follows: Lumbar Spine: L1-L4 BMD: 1.104 g/cm2 ? T-Score: 0.5 ? Z-Score: 2.8 Compared with the prior study dated 11/03/2013, the BMD reading has decreased which is statistically significant Left Proximal Femur: Neck BMD: 0.636 g/cm2 ? T-Score: -1.9 ?? Z-Score: Zero Total BMD: 0.895 g/cm2 ? T-Score: -0.4 ?Z-Score: 1.3 Compared with the prior study the mean BMD reading in the total left hip has decreased which is statistically significant Compared with standards for the young adult, lowest measured bone density places the patient in the W.H.O. osteopenic range. FRAX 10 year probability of major osteoporotic fracture: 10% FRAX 10 year probability of hip fracture: 2% IMPRESSION: IMPRESSION: Osteopenia. The NOF guidelines recommend that FDA approved medical therapies be considered in postmenopausal women and men age >50 years with a: i. Hip or vertebral (clinical or morphometric) fracture ii. T score of < -2.5 at the spine or hip iii. 10 year fracture probability by FRAX of >3% for hip fracture, or >20% for major osteoporotic fracture PLEASE NOTE: ?? W.H.O. classification is based on lowest measured density at the spine, femoral neck, or total hip.This classification has prognostic significance when applied to post menopausal women and older men. 1) ??The World Health Organization defines low BMD as follows: ?T-score ? Normal ? at or > -1 Osteopenia ? < -1 and ??> - 2.5 Osteoporosis ? at or < -2.5 without fractures Established osteoporosis ? < -2.5 with fractures Procedure Note Juliane Saldivar MD - 04/05/2022 Clinical history: menopausal/postmenopausal disorder Scans of the lumbar spine and hips were performed on a [employer] beam bone densitometer. Bone mineral density measurements and associated T and Z scoresrespectively are as follows: Lumbar Spine: L1-L4 BMD: 1.104 g/cm2 T-Score: 0.5 Z-Score: 2.8 Compared with the prior study dated 11/03/2013, the BMD reading hasdecreased which is statistically significant Left Proximal Femur: Neck BMD: 0.636 g/cm2 T-Score: -1.9 Z-Score: Zero Total BMD: 0.895 g/cm2 T-Score: -0.4 Z-Score: 1.3 Compared with the prior study the mean BMD reading in the total left hiphas decreased which is statistically significant Compared with standards for the young adult, lowest measured bone densityplaces the patient in the W.H.O. osteopenic range. FRAX 10 year probability of major osteoporotic fracture: 10% FRAX 10 year probability of hip fracture: 2% IMPRESSION: IMPRESSION: Osteopenia. The NOF guidelines recommend that FDA approved medical therapies beconsidered in postmenopausal women and men age >50 years with a: i. Hip or vertebral (clinical or morphometric) fracture ii. T score of < -2.5 at the spine or hip iii. 10 year fracture probability by FRAX of >3% for hip fracture, or >20%for major osteoporotic fracture PLEASE NOTE: W.H.O. classification is based on lowest measured density at the spine,femoral neck, or total hip.This classification has prognostic significance when applied to postmenopausal women and older men. 1) The World Health Organization defines low BMD as follows: T-score Normal at or > -1 Osteopenia < -1 and > -2.5 Osteoporosis at or < -2.5 withoutfractures Established osteoporosis < -2.5 with fractures Kathy Al MD IMG DXA PROCEDURES Final Resul t * Hepatitis C Screening (05/28/2014) Hepatitis C Screening Abstracted Historical Provider HEALTH MAINTENANCE Final Result from Last 3 Months or Most Recently Relevant to Health Maintenance Insurance [place] Care Teams Coat Feller Relationship Specialty Start Date End Date Kathy Al MD [address] [place] [id number] PCP - General 07/19/04
--- OUTSIDE RECORDS SUMMARY | 2024-06-11 12:09 | XMS_ITS | Continuity of Care Document ---
Author Organization [facility] Address [address] [address] Phone Care Team Providers Care Basket Person Name Role Phone Nader Tony DO Unavailable Unavailable Advance Directives Directive Yes / No Effective Date File Name No Information Encounters Encounter Description Practice Location Reason(s) For Visit Diagnoses Date Provider [facility], [address] [place] [address], [id number], [place] tel:[phone] [address] [place] [address] No Information 2017 Chavo Doe. [address] [place] [address], [id number], [place]. tel:[phone] Family History Family Member Type Diagnosis Age At Onset No Information Payers Payer name Insurance type Covered alliance party ID Authoriza tion(s) No Information Social History Type Description Quantity Date Captured Comments Sex Female Smoking Status No Information Chief Complaint And Reason For Visit No Information History Of Present Illness Encounter Date Complaint History Of Prese nt Illness No Information Instructions Date Instruction Additional Infor mation No Information Assessments Type Assessment Date No Information
--- OUTSIDE RECORDS SUMMARY | 2024-06-11 12:09 | XMS_ITS | Encounter Summary ---
Author Organization [facility] Address [address] [place] [id number] Phone Care Team Providers Care Tab Card Press Operator Name Role Phone Brandon Al MD Primary Care Provider + Reason for Visit * Reason Comments Chronic Kidney Disease Encounter Details Date Type Department Care Team (Late st Contact Info) Description 05/13/2024 1:00 PM EST Office Visit [facility] [address] [address] Tu Villagomez MD [address] [phone] Chronic kidney disease, not otherwise specified (Primary Dx); Long-term current use of lithium Social History Tobacco Use Types Packs/Day Years [...] on file documented as of this encounter Last Filed Vital Signs Vital Sign Reading Time Taken Comments Blood Pressure 120/62 05/13/2024 12:58 PM EST Pulse 53 05/13/2024 12:58 PM EST Temperature - - Respiratory Rate - - Oxygen Saturation - - Inhaled Oxygen Concentration - - Weight 105 kg (232 lb) 05/13/2024 12:58 PM EST Height - - Body Mass Index 36.34 10/05/2020 1:04 PM EDT documented in this encounter Progress Notes * Tu Villagomez MD - 05/13/2024 1:00 PM EST [facility] Patient Name: Kristen Islas, Female Date of : 1950, 74 y.o. Date: 05/13/2024 Referring MD: Mayra Meadows MD PCP: Brandon Al MD Chief Complaint: Chief Complaint Patient presents with Chronic Kidney Disease Reason For Visit: I had the pleasure of seeing your patient for follow up of CKD. The following portions of the patient's chart were reviewed in this encounter and updated as appropriate: Allergies Meds Problems Med Hx Surg Hx Fam Hx Constitutional: Negative for chills, fever, malaise/fatigue and weight loss. HENT: Negative for ear pain, hearing loss and tinnitus. Eyes: Negative for blurred vision, double vision, photophobia and pain. Respiratory: Negative for cough, hemoptysis, sputum production, shortness of breath and wheezing. Cardiovascular: Negative for chest pain, palpitations, orthopnea, claudication and leg swelling. Gastrointestinal: Negative for abdominal pain, diarrhea, nausea and vomiting. Genitourinary: Negative for dysuria, flank pain, frequency, hematuria and urgency. Musculoskeletal: Negative for myalgias. Skin: Negative for itching and rash. Neurological: Negative for dizziness, tingling and headaches. Psychiatric/Behavioral: Negative for depression. Full 13 point review of systems unremarkable except as noted above. Past Medical History: Diagnosis Date Anxiety disorder Hyperlipidemia Hypothyroidism Stage 3 chronic kidney disease Tardive dyskinesia History reviewed. No pertinent surgical history. Social History Tobacco Use Smoking status: Never Smokeless tobacco: Never Substance Use Topics Alcohol use: No Family History Problem Relation Age of Onset Hypertension Father Hypertension Mother Heart disease Father Current Outpatient Medications Medication Sig Dispense Refill acetaminophen (TYLENOL) 325 MG tablet Take 2 tablets by mouth every 4 (four) hours amantadine (SYMMETREL) 100 MG capsule Take 100 mg by mouth aspirin (ST TAYE) 81 MG EC tablet Take 1 tablet by mouth 1 (one) time each day busPIRone (BUSPAR) 5 MG tablet Take 5 mg by mouth carbidopa-levodopa (Sinemet) 25-100 MG per tablet Take 1 tablet by mouth 4 times a day DULoxetine (CYMBALTA) [address] capsule TAKE 1 CAPSULE (60 MG) BY MOUTH DAILY AFTER BREAKFAST lamoTRIgine (LaMICtal) 150 MG tablet Take 150 mg by mouth 1 (one) time each day in the evening levothyroxine (SYNTHROID, LEVOTHROID) 50 MCG tablet Take 1 tablet by mouth 1 (one) time each day LORazepam (Ativan) 0.5 MG tablet Take 1 tablet by mouth polyethylene glycol (MiraLax) 17 GM/SCOOP powder pravastatin (PRAVACHOL) 40 MG tablet Take 1 tablet by mouth 1 (one) time each day QUEtiapine (SEROquel) 25 MG tablet Take 1 tablet by mouth 3 (three) times a day senna (SENOKOT) 8.6 MG tablet Take 1 tablet by mouth 1 (one) time each day traZODone (DESYREL) 100 MG tablet Take 100 mg by mouth at night if needed VITAMIN D PO Take by mouth Vitamin D, Cholecalciferol, 25 MCG (1000 UT) tablet Take by mouth 1 (one) time each day VITAMIN E PO Take by mouth No current facility-administered medications for this visit. Allergies Allergen Reactions Red Dye #40 (Allura Red) Tetracycline Tetracyclines & Related Other (see comments) Objective: Vitals: 05/13/24 1258 BP: 120/62 Pulse: 53 Weight: 232 lb (105 kg) Vitals reviewed. Constitutional: She is oriented to person, place, and time. She does not appear ill. HEENT: Mouth/Throat: Oropharynx is clear and moist. Eyes: Pupils are equal, round, and reactive to light. Neck: No JVD present. Cardiovascular: Regular rhythm. She exhibits no edema. Pulmonary/Chest: Breath sounds normal. Abdominal: Soft. There is no abdominal tenderness. Musculoskeletal: She exhibits decreased range of motion. Neurological: She is alert and oriented to person, place, and time. Skin: Skin is warm. Psychiatric: She has a normal mood and affect. EST GFR Date Value Ref Range Status 09/23/2020 64 ML/MIN/1.73 M2 Final Comment: Creatinine based estimated glomerular filtration rate (eGFR) is calculated using the Chronic Kidney Disease Epidemiology Collaboration (CKD-EPI). The CKD-EPI creatinine equation has not been validated in children (<18 years), women or in some racial or ethnic subgroups other than Caucasians and Americans. Testing performed or reported by [facility], a Service of [facility], [address] [place] [id number] Kathi Donato MD, Vessel Master eGFR Non-Afr Togolese Date Value Ref Range Status 05/04/2023 44 Final Chemistry Lab Units 04/11/24 1132 03/12/24 1119 05/04/23 0000 CREATININE mg/dL -- 1.29* 1.30* BUN mg/dL -- 18 23* BUN / CREAT RATIO -- 14.0 -- EGFRNAFR -- -- 44 GLUCOSE mg/dL -- 81 96 POTASSIUM mmol/L -- 4.1 4.8 SODIUM mmol/L -- 142 141 CO2 mmol/L -- 27 27 CHLORIDE mmol/L -- 110 105.0 ALBUMIN g/dL 3.9 3.6 -- BILIRUBIN TOTAL mg/dL 0.5 0.5 -- AST IU/L 14 12 -- ALT IU/L 5 -- -- Bone Mineral Lab Units 04/11/24 1132 03/12/24 1119 05/04/23 0000 CALCIUM mg/dL -- 9.1 10.0 ALK PHOS IU/L 112 106 -- PTH pg/mL 45 -- -- VIT D 25 HYDROXY ng/mL 29.2* -- -- Urine Lab Units 04/11/24 1132 ALB MG/G CREAT UR mg/g creat <8 No lab exists for component: SPECGRAV , GLUCOSEUR , BILIRUBINUR , RBCUR , UPROTEIN , LEUKOCYTESUR , NITRITE PLAN: Assessment & Plan 1. Chronic kidney disease, not otherwise specified 2. Long-term current use of lithium Kidney function is stable. She does not have proteinuria. Calcium remains normal. She has mild CKD due to prior lithium use and chronic interstitial nephritis. She stopped lithium back in 2014. She had previously hyperparathyroidism with an elevated iPTH suggesting of hyperparathyroidism REC Follow kidney function and electrolytes Follow urine protein to creatinine ratio iPTH and vitamin d No NSAID Low sodium Yearly f/u Orders Placed This Encounter Renal function panel PTH, intact Vit D 25 hydroxy (CKD 2,3,4,5) Urine albumin / creatinine ratio Return in 1 year (on 05/13/2025). Tu Villagomez MD documented in this encounter Plan of Treatment Upcoming Encounters Date Type Department Care Team (Late st Contact Info) Description 05/12/2025 1:00 PM EST [facility] [address] [phone] Tu Villagomez MD [address] [phone] Scheduled Orders Name Type Priority Associated Diagnoses Orde r Schedule Renal function panel Lab Routine Chronic kidney disease, not otherwise specified Expected: 05/13/2025, Expires: 06/13/2025 PTH, intact Lab Routine Chronic kidney disease, not otherwise specified Expected: 05/13/2025, Expires: 06/13/2025 Vit D 25 hydroxy (CKD 2,3,4,5) Lab Routine Chronic kidney disease, not otherwise specified Expected: 05/13/2025, Expires: 06/13/2025 Urine albumin / creatinine ratio Lab Routine Chronic kidney disease, not otherwise specified Expected: 05/13/2025, Expires: 06/13/2025 documented as of this encounter Visit Diagnoses Diagnosis Chronic kidney disease, not otherwise specified- Primary Long-term current use of lithium documented in this encounter Care Teams Tab Card Press Operator Relationship Specialty Start Date End Date Brandon Al MD [address] [place] [id number] PCP - General 04/27/20 documented as of this encounter
--- OUTSIDE RECORDS SUMMARY | 2024-06-11 12:09 | XMS_ITS | Encounter Summary ---
[facility] Organization [facility] Address [address] [place] [address] Care Team Providers Care Real Estate Professor Name Role Phone Kathy Al MD Primary Care Provider [phone] Reason for Visit * Reason Comments Pre-op Exam Encounter Details Date Type Department Care Team ([facility] st Contact Info) Description 05/22/2024 9:00 AM EST Consult Adult Medicine [facility] [address] [place] [address] Joseph Anderson PA [address] [place] [address] Cataract of both eyes, unspecified cataract type (Primary Dx); Bipolar I disorder (CMS/HCC); Drug-induced dyskinesia; Pure hypercholesterolemia; Hypothyroidism, unspecified type; Stage 3 chronic kidney disease, unspecified whether stage 3a or 3b CKD (CMS/HCC) Social History Tobacco Use Types Packs/Day Years [...] Mass Index 36.34 05/22/2024 8:47 AM EST documented in this encounter Progress Notes * Martha Garcia MA - 05/22/2024 9:00 AM EST INFLUENZA VACCINE The patient acknowledges that they will be receiving the Influenza (Flu) vaccine today: yes Flu vaccine formulation is: Fluad High Dose (for age 65 and over): Patient denies allergy to eggs, neomycin, kanamycin, hydrocortisone or previous flu vaccine. yes Immunization tab reviewed: Patient acknowledges they have NOT received a flu vaccine for the . yes Denies history of Guillain-Welch Syndrome (severe muscle weakness). yes Acknowledges reviewing the VIS Seasonal Flu (copy made available). yes Patient Denies moderate or severe illness or fever of >100 degrees F. yes Agrees to wait in the office/car for 20 minutes after receiving the influenza injection. yes No restriction for Influenza vaccine administered IM See Imm/Inj tab. Electronically signed by: Martha Garcia MA 05/22/2024 8:50 AM EST * PAULA Montalvo - 05/22/2024 9:00 AM EST referring MD: Kuldeep Veras MD HPI: Ms. Islas is a 74 y.o. year old female who is scheduled for left cataract surgery on 05/28/2024. Right will be done in June but she doesn't know the date. She is here today for pre-operative consultation. Her functional status is greater than 4 METs as she can walk 50 yards without stopping. She does use a walker for safety. She has not had problems with anesthesia or bleeding. ROS: GENERAL: Negative for malaise, significant weight loss and fever HEENT: No changes in hearing or vision. No nosebleeds or other nasal problems RESPIRATORY: No cough, wheezing or shortness of breath CARDIOVASCULAR: Negative for chest pain, leg swelling and palpitations GI: Negative for abdominal discomfort, changes in bowel habits, blood in stool or black stools : Negative for dysuria, frequency, and incontinence NEURO: No persistent headache, fainting, seizures, strokes, TIAs, weakness, numbness or tingling PAST MEDICAL HISTORY: Patient Active Problem List Diagnosis Date Noted Colon cancer screening 03/12/2024 Morbid obesity ([facility] 01/30/2024 Impaired glucose tolerance 01/04/2022 Anxiety 11/08/2019 Drug-induced dyskinesia 11/08/2019 CKD (chronic kidney disease) stage 3, GFR 30-59 ml/min ([facility]) 04/29/2016 Pure hypercholesterolemia 06/29/2006 Psoriasis 03/07/2006 Bipolar I disorder ([facility]) 03/07/2006 Cholelithiasis 03/07/2006 Chronic liver disease 03/07/2006 Headache 03/07/2006 Hypothyroidism 03/07/2006 Tremor 03/07/2006 Undiagnosed cardiac murmurs 03/07/2006 SOCIAL HISTORY: Social History Tobacco Use Smoking status: Never Smokeless tobacco: Never Substance Use Topics Alcohol use: No FAMILY HISTORY: Family Status Relation Name Status Mother Father Other (Not Specified) Other (Not Specified) Sister Alive Brother twin Alive Neg Hx (Not Specified) No partnership data on file Family History Problem Relation Name Age of Onset Thyroid disease Mother Other (Other: covid) Mother Coronary artery disease Father 80's Thyroid disease Other Brother Graves, Mother hypothyroid Other (Other: Basal cell Ca) Other No Known Problems Sister No Known Problems Brother twin Breast cancer Neg Hx ACTIVE MEDICATIONS: Outpatient Medications Marked as Taking for the 05/22/24 encounter (Consult) with PAULA Montalvo Medication Sig Dispense Refill carbidopa-levodopa (SINEMET) 25-100 mg per tablet Take 1 tablet by mouth 3 (three) times a day. CHOLECALCIFEROL, VITAMIN D3, ORAL Take 10,000 Units Each Million Units by mouth daily. coenzyme Q-10 100 mg capsule Take 1 Capsule by mouth daily. At bedtime DULoxetine (CYMBALTA) [address] capsule Take 3 capsules (60 mg total) by mouth 1 (one) time each day. lamoTRIgine (LaMICtal) 150 mg tablet Take 50 mg by mouth at bedtime. levothyroxine (SYNTHROID, LEVOTHROID) 50 mcg tablet TAKE 1 TABLET BY MOUTH EVERY DAY 90 tablet 1 pravastatin (PRAVACHOL) 40 mg tablet Take 1 tablet (40 mg total) by mouth 1 (one) time each day. traZODone (DESYREL) 50 mg tablet Take 2 tablets (100 mg total) by mouth 1 (one) time each day. ALLERGIES: Tetracycline, Amaranth, Fd and c red no.40, Red dye, Sulfa (sulfonamide antibiotics), and Tetracyclines PHYSICAL EXAM: Blood pressure (!) 123/93, pulse 68, temperature 35.9 ??C (96.7 ??F), temperature source Temporal, height 1.702 m (67 ), weight 105 kg (232 lb). Body mass index is 36.34 kg/m??. APPEARANCE: Alert and in no acute distress EYES: PERRLA, conjunctiva and sclera normal and EOMI MOUTH/THROAT: no erythema, lesions, or exudates NECK: Neck supple, no adenopathy, thyroid symmetric and of normal size HEART: RRR with normal S1 and S2, no murmurs, no gallops, no JVD appreciated LUNG: clear to auscultation bilaterally EXTREMITIES: Extremities warm and well perfused without clubbing, cyanosis, or edema NEURO: Awake, alert and oriented x 3 and reflexes symmetrical LABS: Lab Results Component Value Date WBC 7.3 03/12/2024 HGB 12.9 03/12/2024 HCT 40.8 03/12/2024 MCV 94.7 03/12/2024 Lab Results Component Value Date NA 142 03/12/2024 K 4.1 03/12/2024 CO2 27 03/12/2024 CL 110 03/12/2024 BUN 18 03/12/2024 No results found for: INR , PTT Testing:acceptable EKG: Not needed ASSESSMENT AND PLAN: No diagnosis found. Cardiac - Ms. Islas clinical risk factors include renal insufficiency and female is scheduled fora low risk procedure. Her functional capacity is estimated to be greater than 4 METs. She is, therefore, estimated to have an acceptablerisk for the proposed procedure. Further cardiac workup is not w arranted. Beta blockade perioperatively is not needed. Pulmonary - Her pulmonary risk factors include age > 50. Early ambulation and use of incentive spirometry, when appropriate, are encouraged. Medications - Some anti-hyperlipidemics (niacin, fibric acid derivatives, bile sequestrants, ezetimibe) should be held the day prior to surgery. Please do not hesitate to contact me with any questions or concerns. Thank you for the courtesy of this consultation. PAULA Montalvo on 05/22/2024 at 9:03 AM EST cc: Kuldeep Veras MD documented in this encounter Plan of Treatment Upcoming Encounters Date Type Department Care Team (Late st Contact Info) Description 09/12/2024 10:30 AM EDT Office Visit Adult Medicine - [place] [address] [place] [address] Kathy Al MD [address] [place] [address] documented as of this encounter Visit Diagnoses Diagnosis Cataract of both eyes, unspecified cataract type- Primary Bipolar I disorder (CMS/HCC) Bipolar I disorder, most recent episode (or current) unspecified Drug-induced dyskinesia Pure hypercholesterolemia Hypothyroidism, unspecified type Stage 3 chronic kidney disease, unspecified whether stage 3a or 3b CKD (CMS/HCC) documented in this encounter Discontinued Medications Medication Sig Discontinue Reason Start Date End Da te amantadine (SYMMETREL) 100 mg capsule Take 1 capsule (100 mg total) by mouth 2 (two) times a day. 06/12/2023 05/22/2024 amantadine (SYMMETREL) 100 mg capsule Take 1 capsule (100 mg total) by mouth 2 (two) times a day. 06/12/2023 05/22/2024 documented as of this encounter Historical Medications * This list may reflect changes made after this encounter. amantadine (SYMMETREL) 100 mg capsule Take 1 capsule (100 mg total) by mouth 2 (two) times a day. 05/22/2024 added in this encounter Orders Immunization/Injection Count Last Ordered Date First Ordered Date INFLUENZA TRIVALENT, 0.5ML ( FLUAD) 63YO AND OLDER 1 05/22/2024 documented in this encounter Care Teams Real Estate Professor Relationship Specialty Start Date End Date Kathy Al MD [address] [place] [id number] PCP - General 07/19/04 documented as of this encounter
== END 2024-06-11 10:52 | disposition home or self-care (01) ==
PROVIDERS: PCP Pediatrics; Visit Provider Psychiatry & Neurology Neurology
DX: G21.11 Neuroleptic induced parkinsonism (principal); T43.505A Adverse effect of unspecified antipsychotics and neuroleptics, initial encounter
CPT/HCPCS: 99214; G2211

== ENCOUNTER → 2024-06-11 10:20 | Outpatient (BNVA) | payer MEDICARE, MEDICAID, SELFPAY | PROVIDERS: PCP Pediatrics; Visit Provider Psychiatry & Neurology Neurology | DX: G21.11 Neuroleptic induced parkinsonism (principal); T43.505A Adverse effect of unspecified antipsychotics and neuroleptics, initial encounter; X58.XXXA Exposure to other specified factors, initial encounter; Y93.9 Activity, unspecified; Y92.9 Unspecified place or not applicable; Y99.9 Unspecified external cause status | CPT/HCPCS: 99212 ==